=== PATIENT | male | born 1945 | race Caucasian/White ===

== ENCOUNTER → 2017-06-06 | Outpatient (CLI) | payer OTHER ==
[~2017-06-06] MED LIST: ACETAMINOPHEN325 M1 OR; ASPIR 8181 MG PO; ASPIRIN325 OR; ATORVASTATIN CA40 MG PO; BACLOFEN20 MG PO; CALCIUM 500 +1 EAC5 PO; COLACE100 MG PO; COREG OR; COREG6.25 MG PO; COUMADIN 5 MG TA5 M1; CYMBALTA60 MG PO; DIABETA 5MG TABL5 MG PO; DIAZEPAM2.5 MG PO; DULCOLAX STOOL100 MG OR; FLOMAX0.4 MG PO; GLUCOPHAGE1000 MG PO; HUMALOG100 UNIT/1 SUBQ; HYDROCODON-ACE1 EAC7 PO; INSPRA25 MG PO; KEFLEX500 MG PO; LANTUS100 UNIT/M SUBQ; LASIX 40 MG TAB40 M2 PO; LEVEMIR; LISINOPRIL2.5 MG OR; METOLAZONE 2.52.5 M1 PO; MINIPRIN81 MG PO; MIRALAX17 GM PO; MOM OR; MYRBETRIQ25 MG PO; NAPROSYN500 MG PO; NEURONTIN 400400 M1 PO; NIACIN 500 MG500 M1 PO; NORCO 5-325 TA1 EACH PO; OMEGA-31000 MG PO; POTASSIUM20 PO; PRADAXA150 MG PO; PRAMIPEXOLE D0.25 MG PO; SIMVASTATIN80 MG PO; TEGRETOL XR100 MG OR; VENTOLIN HFA 1818 GM INH; VESICARE10 M1 PO; VITAMIN D31000 UNI2 PO; ZANTAC 150MG T150 MG PO; ZINC50 M1 PO
== END ==
LOC: HYPER 05-31 16:13
DX: T81.89XA Other complications of procedures, not elsewhere classified, initial encounter (principal); S81.002A Unspecified open wound, left knee, initial encounter; J44.9 Chronic obstructive pulmonary disease, unspecified; R20.9 Unspecified disturbances of skin sensation; Y99.8 Other external cause status; E11.40 Type 2 diabetes mellitus with diabetic neuropathy, unspecified; M54.16 Radiculopathy, lumbar region; Z86.73 Personal history of transient ischemic attack (TIA), and cerebral infarction without residual deficits; H49.02 Third [oculomotor] nerve palsy, left eye; I70.209 Unspecified atherosclerosis of native arteries of extremities, unspecified extremity; E11.69 Type 2 diabetes mellitus with other specified complication; Z95.810 Presence of automatic (implantable) cardiac defibrillator; L02.91 Cutaneous abscess, unspecified; G47.33 Obstructive sleep apnea (adult) (pediatric); R55 Syncope and collapse; I11.0 Hypertensive heart disease with heart failure; I50.9 Heart failure, unspecified; I48.0 Paroxysmal atrial fibrillation; L05.92 Pilonidal sinus without abscess; F32.9 Major depressive disorder, single episode, unspecified; F41.9 Anxiety disorder, unspecified; Z87.891 Personal history of nicotine dependence; Z72.89 Other problems related to lifestyle; Y92.89 Other specified places as the place of occurrence of the external cause; X58.XXXA Exposure to other specified factors, initial encounter; Y93.89 Activity, other specified; Y83.8 Other surgical procedures as the cause of abnormal reaction of the patient, or of later complication, without mention of misadventure at the time of the procedure

== ENCOUNTER → 2017-06-13 | Outpatient (CLI) | payer OTHER | LOC: HYPER 06:55 | DX: T81.89XD Other complications of procedures, not elsewhere classified, subsequent encounter (principal); S81.002D Unspecified open wound, left knee, subsequent encounter; E11.40 Type 2 diabetes mellitus with diabetic neuropathy, unspecified; J44.9 Chronic obstructive pulmonary disease, unspecified; I11.0 Hypertensive heart disease with heart failure; I50.22 Chronic systolic (congestive) heart failure; G47.33 Obstructive sleep apnea (adult) (pediatric); I48.0 Paroxysmal atrial fibrillation; M19.90 Unspecified osteoarthritis, unspecified site; F32.9 Major depressive disorder, single episode, unspecified; F41.9 Anxiety disorder, unspecified; Z87.891 Personal history of nicotine dependence; Z86.73 Personal history of transient ischemic attack (TIA), and cerebral infarction without residual deficits; Z95.810 Presence of automatic (implantable) cardiac defibrillator; Z72.89 Other problems related to lifestyle; X58.XXXD Exposure to other specified factors, subsequent encounter; Y83.8 Other surgical procedures as the cause of abnormal reaction of the patient, or of later complication, without mention of misadventure at the time of the procedure ==

== ENCOUNTER 2017-07-03 06:26 | Day surgery (SDC) | payer OTHER ==
[~2017-07-03] VITALS: Ht 175.3 cm; Wt 81.6 kg
--- NOTE | ~2017-07-03 | O ---
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 Wright approximately 2 months ago. 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 Wright approximately 2 months ago with large chronic non-healed wound, sinus with exposed sacral bone. PROCEDURE: 1. Examination under anesthesia, excisional debridement of skin and subcutaneous tissue, fascia and bone of chronic nonhealing sacral wound measuring 5 cm in length, 3 cm in width at 2 cm deep. 2. Excisional debridement of skin, subcutaneous tissue, fascia and bone of chronic nonhealing surgical wound of pilonidal area with application of Miroderm fenestrated biologic wound matrix. TYRE RETREADER: Jorge Frost MD ANESTHESIA: IV sedation, local Marcaine 0.25% with epinephrine. INDICATIONS: The patient is a 72-year-old gentleman, chronically debilitated, who underwent excision of a pilonidal cyst and sinus by Dr. Wright approximately 2 months ago. The wound was closed. The wound failed to heal properly. The patient developed a chronic wound sinus, which cannot be healed with standard wound care techniques. Informed consent was obtained for excisional debridement of skin, subcutaneous tissue, fascia and bone to create a larger open wound we could treat with wound VAC therapy. Informed consent was obtained. DESCRIPTION OF PROCEDURE: The patient in left lateral decubitus position with general intravenous sedation. The sacral pilonidal area was prepped with Betadine solution and sterilely draped in usual fashion. Exam under anesthesia showed an open wound at the skin level approximately 1.5 x 1.5 cm with a 4 cm cephalad wound sinus. The area around the wound was locally infiltrated with 0.25% Marcaine and epinephrine. A Dilma clamp was placed in the sinus cavity [address] [address] OPERATIVE REPORT Name: CAT BARAHONA Room #: DEP [facility]..#: [id number] Admission: 07/03/17 Attend Phys: Jorge Frost MD Discharge: 07/03/17 Date of : 49 Report #: [id number] and the skin and subcutaneous tissue overlying the chronic sinus was laid open using a needle tip electrocautery. This exposed a large open subcutaneous wound cavity containing chronic granulation tissue. At the base of this was exposed bone. Using needle tip electrocautery, the entire sinus cavity including chronic granulation tissue and fascia was excised at the base of the wound. The exposed bone was superficially debrided with a rongeur. This left a large open clean wound. Misonix device was used to complete the wound debridement. Hemostasis was complete with electrocautery. Remaining wound was 5 cm long, 3 cm wide, 2 cm deep. A Miroderm fenestrated biological wound matrix was then affixed to the wound bed using interrupted sutures of 2-0 Vicryl. This was then secured with a moist dressing. The patient tolerated the procedure well and was allowed to go home. He will be seen in [facility] for a dressing change tomorrow. Plan will be to obtain wound healing to the point with good granulation bed and then use negative pressure wound therapy with the wound VAC device to attempt to obtain wound closure. The patient was transferred to recovery in stable condition. <ELECTRONICALLY SIGNED> By: Jorge Frost MD 07/06/17 1423 0605 0829 Jorge Frost MD /nt
--- NOTE | ~2017-07-03 | S ---
[facility] [place] [address] SURGICAL PATH RPT PROCEDURE Name: CAT BARAHONA Room #: DEP [facility] M.R.#: [id number] Admission: 07/03/17 Date of : 49 Discharge: 07/03/17 Report #: [id number] Path Case #: [id number] PATHOLOGY REPORT COLLECTION DATE: 07/03/2017 RECEIVED DATE: 07/03/2017 SUBMITTING PHYS: Dr. Jorge Frost OTHER PHYS: Dr. Harpreet Strauss Jr. SPECIMEN(S) RECEIVED: A.Sacral tissue * * * * * * * * * * * * FINAL DIAGNOSIS: "Sacral tissue", debridement: - Fibroadipose connective tissue with acute and chronic inflammation, focal necrosis, granulation tissue and fibrosis. (CLW:cuong; 07/05/2017) PATHOLOGIST: Jamaica Purdy M.D. REPORT ELECTRONICALLY SIGNED BY: Jamaica Purdy M.D. DATE/TIME: 07/05/2017 23:41 * * * * * * * * * * * * GROSS PATHOLOGY: The specimen is received in formalin labeled "Cat Barahona sacral tissue". Received is a segment of riggins-rincon to yellow-rincon soft tissue with attached possible skin measuring 6.1 x 1.4 x 1.2 cm in greatest dimensions. The specimen is submitted representatively in cassette A1, to include sections of possible skin. (CAA; 07/04/2017) CLINICAL HISTORY: Non-healing pilonidal wound INITIAL CPT CODE(S): A; 77158 Professional services performed by [facility] at [facility] [address] [place] [address] Technical services performed by [facility] at [address] [place] [address] [id number] [facility] [address] [place] [address] SURGICAL PATH RPT PROCEDURE Name: CAT BARAHONA Room #: DEP [facility] Valentino#: [id number] Admission: 07/03/17 Date of : 49 Discharge: 07/03/17 Report #: [id number] Path Case #: [id number] [address] PHONE: [phone] DIRECTOR: Nile Miller M.D. * * * END OF REPORT * * *
[~2017-07-03 06:26] MED LIST changes: +DUONEB 2.5-0.5 M3 ML INH
[2017-07-03 09:00] VITALS: BP 104/65
[2017-07-03 09:16] LABS: CREATININE 1.3 mg/dL (0.7-1.3); POTASSIUM 3.6 mmol/L (3.5-5.1)
[2017-07-03 10:01] LABS: PROTIME 10.6 Seconds (9.3-11.4)
== END 2017-07-03 13:00 | disposition home or self-care (01) ==
LOC: OR → TBA 06:26 → OR 06:26 → TBA 06:28 → OR 08:13
PROVIDERS: Specialist
DX: T81.89XA Other complications of procedures, not elsewhere classified, initial encounter (principal); I11.0 Hypertensive heart disease with heart failure; I50.9 Heart failure, unspecified; I25.2 Old myocardial infarction; E11.42 Type 2 diabetes mellitus with diabetic polyneuropathy; I48.91 Unspecified atrial fibrillation; G47.33 Obstructive sleep apnea (adult) (pediatric); K21.9 Gastro-esophageal reflux disease without esophagitis; E78.00 Pure hypercholesterolemia, unspecified; F17.210 Nicotine dependence, cigarettes, uncomplicated; F32.89 Other specified depressive episodes; F41.8 Other specified anxiety disorders; Z98.890 Other specified postprocedural states; Z86.73 Personal history of transient ischemic attack (TIA), and cerebral infarction without residual deficits; Z95.810 Presence of automatic (implantable) cardiac defibrillator; Z79.4 Long term (current) use of insulin; Z79.899 Other long term (current) drug therapy; Z88.6 Allergy status to analgesic agent; Z88.8 Allergy status to other drugs, medicaments and biological substances; Z79.82 Long term (current) use of aspirin; Z91.048 Other nonmedicinal substance allergy status; Y83.8 Other surgical procedures as the cause of abnormal reaction of the patient, or of later complication, without mention of misadventure at the time of the procedure
CPT/HCPCS: 50010; 50101; 50386; 51636; 53353; 53354; 54109; 62110; 62850; 70005

== ENCOUNTER → 2017-07-04 | Outpatient (CLI) | payer OTHER | LOC: HYPER 07:03 | DX: T81.89XD Other complications of procedures, not elsewhere classified, subsequent encounter (principal); E11.40 Type 2 diabetes mellitus with diabetic neuropathy, unspecified; J44.9 Chronic obstructive pulmonary disease, unspecified; I50.22 Chronic systolic (congestive) heart failure; G47.33 Obstructive sleep apnea (adult) (pediatric); I48.0 Paroxysmal atrial fibrillation; I10 Essential (primary) hypertension; L05.92 Pilonidal sinus without abscess; M19.90 Unspecified osteoarthritis, unspecified site; F32.9 Major depressive disorder, single episode, unspecified; F41.9 Anxiety disorder, unspecified; Z87.891 Personal history of nicotine dependence; Z86.73 Personal history of transient ischemic attack (TIA), and cerebral infarction without residual deficits; Z95.810 Presence of automatic (implantable) cardiac defibrillator; Z72.89 Other problems related to lifestyle; Y83.8 Other surgical procedures as the cause of abnormal reaction of the patient, or of later complication, without mention of misadventure at the time of the procedure ==

== ENCOUNTER 2017-07-06 17:14 | Inpatient (IN) | payer OTHER ==
[~2017-07-06] VITALS: Ht 175.3 cm; Wt 81.6 kg
--- NOTE | ~2017-07-06 | D ---
[facility] [place] [address] DISCHARGE SUMMARY Name: CAT BARAHONA Room #: 429-P [facility] IN M.R.#: [id number] Admission: 07/06/17 Attend Phys: Shahnaz Barrios MD Discharge: 07/10/17 Date of : 49 Report #: [id number] THIS REPORT FOR: //name// CC: Shahnaz STEWART DATE OF SERVICE: 07/10/2017 HISTORY OF PRESENT ILLNESS: The patient is a 72-year-old man with multiple medical problems, who came to the hospital with nonhealing coccyx wound, as well as fever and malaise. Please refer to the admission H and P for details. HOSPITALIZATION COURSE: The patient was hospitalized at [facility]. He was started on Zosyn. Infectious Disease and student specialist were involved. The patient had wound vacuum placed on 07/08/2017. His condition improved, and fever resolved. He was also found to have acute kidney injury, that has improved to his baseline, with creatinine of 1.4 from 2.1. The patient currently feels well. He has no new complaints. New wound vacuum was provided to the patient. Before the patient goes home, outpatient antibiotic regimen will be determined by the infectious disease specialist. Currently, the patient's condition is acceptable, as documented in the patient's chart. DISCHARGE DIAGNOSES: 1. Nonhealing surgical wound at the coccyx, status post pilonidal cyst removal few months ago. Wound vacuum was placed. Antibiotic regimen to be determined by Infectious Disease specialist. 2. Acute kidney injury on chronic kidney disease stage 3. Current creatinine is 1.4, from 2.1 on admission. SECONDARY DIAGNOSES: 1. Chronic obstructive pulmonary disease. 2. Hypertension. 3. Dyslipidemia. 4. History of cerebrovascular disease with residual right-sided weakness. 5. Atrial fibrillation, status post automatic implantable cardioverter defibrillator and pacemaker, on Pradaxa for anticoagulation. 6. Congestive heart failure, type is not specified. 7. Tobacco abuse. [facility] [address] [place] [address] DISCHARGE SUMMARY Name: CAT BARAHONA DE LA CRUZ Room #: 429-P [facility].#: [id number] Admission: 07/06/17 Attend Phys: Shahnaz Barrios MD Discharge: 07/10/17 Date of : 49 Report #: [id number] DISCHARGE MEDICATIONS: Please refer to the medication reconciliation list. FOLLOWUP PLAN: 1. Follow up in the Wound Care and Infectious Disease Clinic as advised. 2. Follow up with the primary care physician in 1-2 weeks. DISPOSITION: The patient is discharged home on home health. I spent more than 30 minutes to coordinate the patient's discharge from the hospital. <ELECTRONICALLY SIGNED> By: Dian Suarez MD 07/12/17 1454 1045 1752 Dian Suarez MD /nt
--- NOTE | ~2017-07-06 | HC ---
[facility] [place] [address] CONSULTATION Name: CAT BARAHONA Room #: 429-P ADM IN M.R.#: [id number] Admission: 07/06/17 Attend Phys: Shahnaz Barrios MD Discharge: Date of : 49 Report #: [id number] THIS REPORT FOR: //name// CC: Shahnaz STEWART DATE OF SERVICE: 07/06/2017 DATE OF SERVICE: 07/06/2017 REASON FOR CONSULTATION: Malaise and suspected infection of sacral wound surgery site. HISTORY OF PRESENT ILLNESS: The patient is a wound care patient of mine at [facility]. He a surgical patient of Dr. Strauss who removed a pilonidal cyst on 03/27/2017. The wound never healed properly and ended up with a chronic wound sinus. The patient was seen in Wound Care Center at [facility]. I did take the patient to surgery at [facility] on Saturday07/03/2017 and performed an excisional debridement of the wound, with skin, subcutaneous tissue and some superficial bone and a chronic wound sinus was removed. The patient was sent home with wound packing; however, there was some trouble packing the wound at home and there was considerable drainage. The patient was seen on postoperative day #1 in wound care clinic. The patient's did call me. The patient was having malaise, sleeping a lot and she felt that the wound was red and had a lot of drainage. They presented themselves to the Emergency Room at [facility] and I am consulted for suspicion of possible wound infection. PAST MEDICAL HISTORY: Diabetes mellitus type 2 with diabetic neuropathy, history of cerebrovascular accident with right-sided weakness, history of COPD, history of congestive heart failure, history of atrial fibrillation. PAST SURGICAL HISTORY: On 03/27/2017, pilonidal cyst excision by Dr. Strauss, cervical spine surgery, placement of an implantable defibrillator, two inguinal hernia repairs. REVIEW OF SYSTEMS: The patient has been sleepy with malaise. PHYSICAL EXAMINATION: GENERAL: Shows slightly ill appearing elderly gentleman. VITAL SIGNS: Stable, afebrile. HEENT: Mucous membranes are moist. EXTREMITIES: Right-sided weakness. Examination of the surgical site of the sacral area shows an open wound approximately 4 x 2 x 2.5 cm deep. There is considerable drainage from the wound and a large amount of adherent exudate at the base of the wound. There is some redness of the surrounding skin. Wound [facility] [address] [place] [address] CONSULTATION Name: CAT BARAHONA Room #: 429-P [facility] IN M.R.#: [id number] Admission: 07/06/17 Attend Phys: Shahnaz Barrios MD Discharge: Date of : 49 Report #: [id number] cultures are taken. Wound appears possibly infected. IMPRESSION: Possible postoperative wound infection with systemic effects. PLAN: Wound culture again, IV broad-spectrum antibiotics, Zosyn, and Infectious Disease consultation. We will begin packing the wound with half strength Dakin's packing 2 to 3 times a day and will follow the patient in the hospital with care from the wound care nurse and myself to treat the localized infection of the wound and ready the wound for wound VAC placement. The patient will be admitted to the hospitalist service. <ELECTRONICALLY SIGNED> By: Jorge Frost MD 07/10/17 0712 0755 0824 Jorge Frost MD /nt
--- NOTE | ~2017-07-06 | HC ---
[facility] [place] [address] CONSULTATION Name: CAT BARAHONA Room #: 429-P [facility] IN M.R.#: [id number] Admission: 07/06/17 Attend Phys: Shahnaz Barrios MD Discharge: Date of : 49 Report #: [id number] THIS REPORT FOR: //name// CC: Shahnaz STEWART REASON FOR CONSULTATION: I was asked to evaluate concerning fever and change in mental status following surgical debridement of a coccyx wound. HISTORY OF PRESENT ILLNESS: The patient is a 72-year-old with a nonhealing wound to his coccyx following a pilonidal cyst excision. He was taken to surgery by Dr. Frost on 07/03, for wider excision and debridement. He was discharged home only to return on 07/06, with decreased mental status, temperature 100.2 degrees, anorexia, and increased pain in his buttock. He does have a baclofen, morphine pump for chronic back pain. He has had a previous stroke with right hemiparesis and pain syndrome. REVIEW OF SYSTEMS: Notes no headache, cough, sputum, nausea, vomiting, diarrhea, dysuria, or frequency. ALLERGIES: LISINOPRIL, TAPE, and IBUPROFEN. MEDICATIONS: As noted on his DEC, now on Zosyn. He was on no antibiotics post surgical excision. PAST MEDICAL HISTORY: Lumbar laminectomy and fusion, diabetes, past smoker, hypertension, peripheral neuropathy, CHF, nonischemic cardiomyopathy, frontal sinus tumor removed, left embolic stroke, atrial fibrillation, permanent pacemaker defibrillator, baclofen pump, depression, anxiety, dental extractions, and SC. FAMILY HISTORY: Noncontributory. SOCIAL HISTORY: Smoker of cigarettes, minimal alcohol use. PHYSICAL EXAMINATION: VITAL SIGNS: Afebrile and hemodynamically stable. GENERAL: He was alert, cooperative, had pain in his sacral region. Wound to the coccyx was fairly clean. There was a small eschar over the bone where there was a debridement performed earlier in the week. No purulent drainage. He still had a fair amount of tenderness around the area. CHEST: Clear. HEART: Regular. ABDOMEN: Soft and nontender. Left lower quadrant baclofen pump site unremarkable. He did have some erythema to the lower abdominal region toward the pelvis on the left. Had dry skin there. No definite cellulitis extending to the buttock region. Did not appear to involve the baclofen pump pocket. [address] [address] CONSULTATION Name: CAT BARAHONA Room #: 429-P [facility] IN M.R.#: [id number] Admission: 07/06/17 Attend Phys: Shahnaz Barrios MD Discharge: Date of : 49 Report #: [id number] This will need further observation. EXTERNAL GENITALIA: Unremarkable. EXTREMITIES: Otherwise, unremarkable. LABORATORY STUDIES: Sodium 139, potassium 3, bicarb 33, and creatinine 1.6. Hemoglobin 13.1, white count 7.6, and platelet count 126,000. Blood and wound culture are pending. IMPRESSION: Low grade fever postop, suspect wound as the source. I did talk to Dr. Frost who is concerned about the packing that was in place postoperatively. Acute renal failure, now improved, suspect component of dehydration. RECOMMENDATIONS: We will continue Zosyn, adjust it for his renal failure. Await blood cultures. Check UA and chest x-ray. Continue wound care. <ELECTRONICALLY SIGNED> By: Killian Leggett MD 07/09/17 1710 1339 1419 Killian Leggett MD /nt
[2017-07-06 17:27] VITALS: BP 102/57
[2017-07-06 18:28] LABS: HEMOGLOBIN 13.2 gm/dL (14.0-18.0); MCH 30.7 pg (26.0-34.0); MCHC 34.8 g/dL (28.0-37.0); MCV 88.3 fL (80.0-100.0); PLATELET COUNT 114 thou/uL (150-400); RBC 4.31 mil/uL (4.50-6.00); RDW 13.3 % (10.5-14.5); WBC 9.6 thou/uL (4.0-11.0)
[2017-07-06 18:33] LABS: MANUAL DIFF YES
[2017-07-06 18:38] LABS: CALCIUM 9.3 mg/dL (8.5-10.1); CREATININE 2.1 mg/dL (0.7-1.3); POTASSIUM 3.7 mmol/L (3.5-5.1)
[2017-07-06 18:59] LABS: ABSOLUTE NEUTROPHILS 8.3 thou/uL (1.4-8.2); TOTAL CELL COUNT 100
[2017-07-06 19:30] VITALS: BP 102/57
[2017-07-06 19:32] VITALS: BP 102/57
[2017-07-06 21:46] VITALS: BP 96/51
[2017-07-07 03:15] VITALS: BP 112/54
[2017-07-07 06:23] LABS: HEMATOCRIT 38.6 % (42.0-52.0); HEMOGLOBIN 13.1 gm/dL (14.0-18.0); MCH 30.3 pg (26.0-34.0); MCV 89.2 fL (80.0-100.0); PLATELET COUNT 126 thou/uL (150-400); RBC 4.33 mil/uL (4.50-6.00); RDW 13.3 % (10.5-14.5); WBC 7.6 thou/uL (4.0-11.0)
[2017-07-07 06:27] LABS: MANUAL DIFF YES
[2017-07-07 06:34] LABS: CALCIUM 9.2 mg/dL (8.5-10.1); CREATININE 1.6 mg/dL (0.7-1.3)
[2017-07-07 07:32] LABS: ABSOLUTE NEUTROPHILS 6.7 thou/uL (1.4-8.2); ANISOCYTOSIS 1+; TOTAL CELL COUNT 100
[2017-07-07 10:08] VITALS: BP 105/66
[2017-07-07 16:43] VITALS: BP 109/62
[2017-07-07 20:30] VITALS: BP 125/73
[2017-07-07 21:49] LABS: URINE BILIRUBIN NEGATIVE (Negative); URINE BLOOD 1+ (Negative); URINE COLOR YELLOW; URINE GLUCOSE-RANDOM* NEGATIVE (Negative); URINE KETONES NEGATIVE (Negative); URINE LEUKOCYTES-REFLEX NEGATIVE (Negative); URINE PROTEIN (DIPSTICK) NEGATIVE (Negative); URINE UROBILINOGEN 0.2 E.U./dl (0.2-1.0)
[2017-07-07 22:30] LABS: SQUAMOUS 0-3 Few /LPF (0-3)
[2017-07-07 22:33] LABS: CASTS None Seen /LPF (None Seen); CRYSTALS None Seen /LPF (None Seen); URINE RBC 0-2 Rare /HPF (0-2); URINE WBC-REFLEX 0-5 Rare /HPF (0-5)
[2017-07-08 04:30] VITALS: BP 110/46
[2017-07-08 06:16] LABS: ABSOLUTE NEUTROPHILS 3.8 thou/uL (1.4-8.2); BASOPHILS 0.4 % (0.0-2.0); EOSINOPHILS 5.9 % (0.0-3.0); HEMATOCRIT 37.8 % (42.0-52.0); LYMPHOCYTES 14.7 % (24.0-44.0); MCH 30.4 pg (26.0-34.0); MCHC 34.3 g/dL (28.0-37.0); MCV 88.7 fL (80.0-100.0); MONOCYTES 7.8 % (1.0-8.0); PLATELET COUNT 157 thou/uL (150-400); POLYS 71.2 % (36.0-66.0); RBC 4.26 mil/uL (4.50-6.00); RDW 13.2 % (10.5-14.5); WBC 5.3 thou/uL (4.0-11.0)
[2017-07-08 06:17] LABS: MANUAL DIFF NO
[2017-07-08 06:28] LABS: CALCIUM 9.1 mg/dL (8.5-10.1); CREATININE 1.3 mg/dL (0.7-1.3)
[2017-07-08 07:56] VITALS: BP 101/47
[2017-07-08 15:35] VITALS: BP 97/81
[2017-07-08 19:41] VITALS: BP 116/62
[2017-07-09 04:45] VITALS: BP 110/61
[2017-07-09 07:30] VITALS: BP 119/60
[2017-07-09 15:30] VITALS: BP 106/58
[2017-07-09 20:47] VITALS: BP 113/55
[2017-07-10 04:04] VITALS: BP 127/65
[2017-07-10 05:51] LABS: ABSOLUTE NEUTROPHILS 3.6 thou/uL (1.4-8.2); BASOPHILS 0.8 % (0.0-2.0); EOSINOPHILS 5.2 % (0.0-3.0); HEMATOCRIT 40.4 % (42.0-52.0); HEMOGLOBIN 13.4 gm/dL (14.0-18.0); LYMPHOCYTES 21.9 % (24.0-44.0); MCH 29.8 pg (26.0-34.0); MCHC 33.1 g/dL (28.0-37.0); MCV 89.9 fL (80.0-100.0); PLATELET COUNT 199 thou/uL (150-400); POLYS 62.1 % (36.0-66.0); RBC 4.49 mil/uL (4.50-6.00); RDW 13.2 % (10.5-14.5); WBC 5.8 thou/uL (4.0-11.0)
[2017-07-10 06:04] LABS: CALCIUM 9.4 mg/dL (8.5-10.1); CREATININE 1.2 mg/dL (0.7-1.3); POTASSIUM 4.4 mmol/L (3.5-5.1)
[2017-07-10 06:05] LABS: MANUAL DIFF NO
[2017-07-10 07:35] VITALS: BP 126/68
[2017-07-10 11:46] VITALS: BP 126/68
[2017-07-10] MEDS ORDERED: KEFLEX500 MG PO (17:46)
[2017-07-10 18:05] VITALS: BP 126/68
== END 2017-07-10 18:00 | disposition home health service (06) | DRG 862 ==
LOC: ER 17:14 → EROBS 19:15 → 4E 19:15 → ENTRNSPT 07-10 18:23
PROVIDERS: Emergency Medicine; Internal Medicine Endocrinology, Diabetes & Metabolism; Specialist
DX: T81.4XXA Infection following a procedure, initial encounter (principal); N17.0 Acute kidney failure with tubular necrosis; I13.0 Hypertensive heart and chronic kidney disease with heart failure and stage 1 through stage 4 chronic kidney disease, or unspecified chronic kidney disease; E11.42 Type 2 diabetes mellitus with diabetic polyneuropathy; I50.9 Heart failure, unspecified; E78.5 Hyperlipidemia, unspecified; I48.91 Unspecified atrial fibrillation; K21.9 Gastro-esophageal reflux disease without esophagitis; F32.9 Major depressive disorder, single episode, unspecified; F41.9 Anxiety disorder, unspecified; J44.9 Chronic obstructive pulmonary disease, unspecified; Y83.8 Other surgical procedures as the cause of abnormal reaction of the patient, or of later complication, without mention of misadventure at the time of the procedure; N18.3 Chronic kidney disease, stage 3 (moderate); E87.6 Hypokalemia; G89.29 Other chronic pain; Z79.4 Long term (current) use of insulin; Z79.899 Other long term (current) drug therapy; Y92.89 Other specified places as the place of occurrence of the external cause; Z98.1 Arthrodesis status; Z89.022 Acquired absence of left finger(s); Z86.73 Personal history of transient ischemic attack (TIA), and cerebral infarction without residual deficits; Z95.810 Presence of automatic (implantable) cardiac defibrillator; I25.2 Old myocardial infarction; Z88.8 Allergy status to other drugs, medicaments and biological substances; Z91.048 Other nonmedicinal substance allergy status
CPT/HCPCS: 10183

== ENCOUNTER → 2017-07-18 | Outpatient (CLI) | payer OTHER | LOC: HYPER 07-11 14:12 | DX: T81.89XD Other complications of procedures, not elsewhere classified, subsequent encounter (principal); E11.40 Type 2 diabetes mellitus with diabetic neuropathy, unspecified; J44.9 Chronic obstructive pulmonary disease, unspecified; R20.9 Unspecified disturbances of skin sensation; M54.16 Radiculopathy, lumbar region; Z86.73 Personal history of transient ischemic attack (TIA), and cerebral infarction without residual deficits; R25.2 Cramp and spasm; R22.41 Localized swelling, mass and lump, right lower limb; H49.02 Third [oculomotor] nerve palsy, left eye; I70.209 Unspecified atherosclerosis of native arteries of extremities, unspecified extremity; I11.0 Hypertensive heart disease with heart failure; I50.9 Heart failure, unspecified; G47.33 Obstructive sleep apnea (adult) (pediatric); R55 Syncope and collapse; I48.0 Paroxysmal atrial fibrillation; I69.90 Unspecified sequelae of unspecified cerebrovascular disease; F41.9 Anxiety disorder, unspecified; F32.9 Major depressive disorder, single episode, unspecified; M19.90 Unspecified osteoarthritis, unspecified site; Z87.891 Personal history of nicotine dependence; Z72.89 Other problems related to lifestyle; Y83.8 Other surgical procedures as the cause of abnormal reaction of the patient, or of later complication, without mention of misadventure at the time of the procedure ==

== ENCOUNTER → 2017-07-25 | Outpatient (CLI) | payer OTHER | LOC: HYPER 07:11 | DX: T81.89XD Other complications of procedures, not elsewhere classified, subsequent encounter (principal); E11.40 Type 2 diabetes mellitus with diabetic neuropathy, unspecified; I25.10 Atherosclerotic heart disease of native coronary artery without angina pectoris; J44.9 Chronic obstructive pulmonary disease, unspecified; I11.0 Hypertensive heart disease with heart failure; I50.22 Chronic systolic (congestive) heart failure; L05.91 Pilonidal cyst without abscess; G47.33 Obstructive sleep apnea (adult) (pediatric); I48.0 Paroxysmal atrial fibrillation; M19.90 Unspecified osteoarthritis, unspecified site; F32.9 Major depressive disorder, single episode, unspecified; F41.9 Anxiety disorder, unspecified; Z87.891 Personal history of nicotine dependence; Z72.89 Other problems related to lifestyle; Z95.810 Presence of automatic (implantable) cardiac defibrillator; Z86.73 Personal history of transient ischemic attack (TIA), and cerebral infarction without residual deficits; Y83.8 Other surgical procedures as the cause of abnormal reaction of the patient, or of later complication, without mention of misadventure at the time of the procedure ==

== ENCOUNTER → 2017-08-01 | Outpatient (CLI) | payer OTHER | LOC: HYPER 06:57 | DX: T81.89XD Other complications of procedures, not elsewhere classified, subsequent encounter (principal); L05.92 Pilonidal sinus without abscess; L05.91 Pilonidal cyst without abscess; J44.9 Chronic obstructive pulmonary disease, unspecified; R20.9 Unspecified disturbances of skin sensation; E11.40 Type 2 diabetes mellitus with diabetic neuropathy, unspecified; M54.16 Radiculopathy, lumbar region; R22.41 Localized swelling, mass and lump, right lower limb; H49.02 Third [oculomotor] nerve palsy, left eye; I11.0 Hypertensive heart disease with heart failure; I50.22 Chronic systolic (congestive) heart failure; G47.33 Obstructive sleep apnea (adult) (pediatric); I48.91 Unspecified atrial fibrillation; M19.90 Unspecified osteoarthritis, unspecified site; F41.9 Anxiety disorder, unspecified; F32.9 Major depressive disorder, single episode, unspecified; Z86.73 Personal history of transient ischemic attack (TIA), and cerebral infarction without residual deficits; Z87.891 Personal history of nicotine dependence; Z72.89 Other problems related to lifestyle; Y83.8 Other surgical procedures as the cause of abnormal reaction of the patient, or of later complication, without mention of misadventure at the time of the procedure ==

== ENCOUNTER → 2017-08-13 | Outpatient (CLI) | payer OTHER | LOC: HYPER 07:00 | DX: T81.89XD Other complications of procedures, not elsewhere classified, subsequent encounter (principal); E11.40 Type 2 diabetes mellitus with diabetic neuropathy, unspecified; L05.92 Pilonidal sinus without abscess; L05.91 Pilonidal cyst without abscess; J44.9 Chronic obstructive pulmonary disease, unspecified; I11.0 Hypertensive heart disease with heart failure; I50.22 Chronic systolic (congestive) heart failure; G47.33 Obstructive sleep apnea (adult) (pediatric); I48.0 Paroxysmal atrial fibrillation; M19.90 Unspecified osteoarthritis, unspecified site; F32.9 Major depressive disorder, single episode, unspecified; F41.8 Other specified anxiety disorders; Z87.891 Personal history of nicotine dependence; Z86.73 Personal history of transient ischemic attack (TIA), and cerebral infarction without residual deficits; Z95.810 Presence of automatic (implantable) cardiac defibrillator; Z72.89 Other problems related to lifestyle; Y83.8 Other surgical procedures as the cause of abnormal reaction of the patient, or of later complication, without mention of misadventure at the time of the procedure ==

== ENCOUNTER → 2017-09-10 | Outpatient (CLI) | payer OTHER | LOC: HYPER 09-03 16:22 | DX: T81.89XD Other complications of procedures, not elsewhere classified, subsequent encounter (principal); L05.92 Pilonidal sinus without abscess; L05.91 Pilonidal cyst without abscess; E11.40 Type 2 diabetes mellitus with diabetic neuropathy, unspecified; J44.9 Chronic obstructive pulmonary disease, unspecified; I70.208 Unspecified atherosclerosis of native arteries of extremities, other extremity; I11.0 Hypertensive heart disease with heart failure; I50.22 Chronic systolic (congestive) heart failure; G47.33 Obstructive sleep apnea (adult) (pediatric); I48.0 Paroxysmal atrial fibrillation; M19.90 Unspecified osteoarthritis, unspecified site; F32.9 Major depressive disorder, single episode, unspecified; F41.9 Anxiety disorder, unspecified; Z87.891 Personal history of nicotine dependence; Z72.89 Other problems related to lifestyle; Z86.73 Personal history of transient ischemic attack (TIA), and cerebral infarction without residual deficits; Y83.8 Other surgical procedures as the cause of abnormal reaction of the patient, or of later complication, without mention of misadventure at the time of the procedure ==

== ENCOUNTER → 2017-10-22 | Outpatient (CLI) | payer OTHER ==
[~2017-10-22] MED LIST changes: +ALBUTEROL; +CARVEDILOL3.125 MG; +HUMALOG100 UNIT/1; +IPRATROPIU0.2 MG/1 M; +LANTUS100 UNIT/M; +METOLAZONE 2.52.5 M1; +MIRALAX17 GM; +POTASSIUM20; +ZINC50 M1
== END ==
LOC: HYPER 10-08 06:55
DX: T81.89XD Other complications of procedures, not elsewhere classified, subsequent encounter (principal); E11.40 Type 2 diabetes mellitus with diabetic neuropathy, unspecified; J44.9 Chronic obstructive pulmonary disease, unspecified; I11.0 Hypertensive heart disease with heart failure; I50.9 Heart failure, unspecified; I48.91 Unspecified atrial fibrillation; M19.90 Unspecified osteoarthritis, unspecified site; F32.9 Major depressive disorder, single episode, unspecified; F41.9 Anxiety disorder, unspecified; Z87.891 Personal history of nicotine dependence; Z72.89 Other problems related to lifestyle; Z86.73 Personal history of transient ischemic attack (TIA), and cerebral infarction without residual deficits; Y83.8 Other surgical procedures as the cause of abnormal reaction of the patient, or of later complication, without mention of misadventure at the time of the procedure

== ENCOUNTER → 2017-10-29 | Outpatient (CLI) | payer OTHER | LOC: HYPER 06:50 | DX: T81.89XD Other complications of procedures, not elsewhere classified, subsequent encounter (principal); E11.40 Type 2 diabetes mellitus with diabetic neuropathy, unspecified; I11.0 Hypertensive heart disease with heart failure; I50.22 Chronic systolic (congestive) heart failure; I48.0 Paroxysmal atrial fibrillation; G47.33 Obstructive sleep apnea (adult) (pediatric); J44.9 Chronic obstructive pulmonary disease, unspecified; F32.9 Major depressive disorder, single episode, unspecified; F41.9 Anxiety disorder, unspecified; M19.90 Unspecified osteoarthritis, unspecified site; Z87.891 Personal history of nicotine dependence; Z86.73 Personal history of transient ischemic attack (TIA), and cerebral infarction without residual deficits; Z95.810 Presence of automatic (implantable) cardiac defibrillator; Z72.89 Other problems related to lifestyle; Y83.8 Other surgical procedures as the cause of abnormal reaction of the patient, or of later complication, without mention of misadventure at the time of the procedure ==

== ENCOUNTER → 2017-11-05 | Outpatient (CLI) | payer OTHER | LOC: HYPER 06:43 | DX: T81.89XD Other complications of procedures, not elsewhere classified, subsequent encounter (principal); E11.40 Type 2 diabetes mellitus with diabetic neuropathy, unspecified; L05.92 Pilonidal sinus without abscess; L05.91 Pilonidal cyst without abscess; R25.2 Cramp and spasm; J44.9 Chronic obstructive pulmonary disease, unspecified; I11.0 Hypertensive heart disease with heart failure; I50.9 Heart failure, unspecified; I48.91 Unspecified atrial fibrillation; M19.90 Unspecified osteoarthritis, unspecified site; F41.9 Anxiety disorder, unspecified; F32.9 Major depressive disorder, single episode, unspecified; Z86.73 Personal history of transient ischemic attack (TIA), and cerebral infarction without residual deficits; Z87.891 Personal history of nicotine dependence; Z72.89 Other problems related to lifestyle; Y83.8 Other surgical procedures as the cause of abnormal reaction of the patient, or of later complication, without mention of misadventure at the time of the procedure ==

== ENCOUNTER → 2017-11-19 | Outpatient (CLI) | payer OTHER | LOC: HYPER 06:52 | DX: T81.89XD Other complications of procedures, not elsewhere classified, subsequent encounter (principal); E11.40 Type 2 diabetes mellitus with diabetic neuropathy, unspecified; J44.9 Chronic obstructive pulmonary disease, unspecified; I11.0 Hypertensive heart disease with heart failure; I50.22 Chronic systolic (congestive) heart failure; G47.33 Obstructive sleep apnea (adult) (pediatric); I48.0 Paroxysmal atrial fibrillation; M19.90 Unspecified osteoarthritis, unspecified site; F32.9 Major depressive disorder, single episode, unspecified; F41.9 Anxiety disorder, unspecified; Z87.891 Personal history of nicotine dependence; Z86.73 Personal history of transient ischemic attack (TIA), and cerebral infarction without residual deficits; Z95.810 Presence of automatic (implantable) cardiac defibrillator; Z72.89 Other problems related to lifestyle; Y83.8 Other surgical procedures as the cause of abnormal reaction of the patient, or of later complication, without mention of misadventure at the time of the procedure ==

== ENCOUNTER → 2017-11-26 | Outpatient (CLI) | payer OTHER | LOC: HYPER 06:51 | DX: T81.89XD Other complications of procedures, not elsewhere classified, subsequent encounter (principal); E11.40 Type 2 diabetes mellitus with diabetic neuropathy, unspecified; J44.9 Chronic obstructive pulmonary disease, unspecified; I25.10 Atherosclerotic heart disease of native coronary artery without angina pectoris; I11.0 Hypertensive heart disease with heart failure; I50.22 Chronic systolic (congestive) heart failure; G47.33 Obstructive sleep apnea (adult) (pediatric); I48.0 Paroxysmal atrial fibrillation; M19.90 Unspecified osteoarthritis, unspecified site; F32.9 Major depressive disorder, single episode, unspecified; F41.9 Anxiety disorder, unspecified; Z87.891 Personal history of nicotine dependence; Z86.73 Personal history of transient ischemic attack (TIA), and cerebral infarction without residual deficits; Z95.810 Presence of automatic (implantable) cardiac defibrillator; Z72.89 Other problems related to lifestyle; Y83.8 Other surgical procedures as the cause of abnormal reaction of the patient, or of later complication, without mention of misadventure at the time of the procedure ==

== ENCOUNTER → 2017-12-10 | Outpatient (CLI) | payer OTHER | LOC: HYPER 12-03 06:50 | DX: T81.89XD Other complications of procedures, not elsewhere classified, subsequent encounter (principal); E11.40 Type 2 diabetes mellitus with diabetic neuropathy, unspecified; I11.0 Hypertensive heart disease with heart failure; I50.9 Heart failure, unspecified; I48.0 Paroxysmal atrial fibrillation; M54.16 Radiculopathy, lumbar region; M19.90 Unspecified osteoarthritis, unspecified site; H49.02 Third [oculomotor] nerve palsy, left eye; J44.9 Chronic obstructive pulmonary disease, unspecified; F32.9 Major depressive disorder, single episode, unspecified; G47.33 Obstructive sleep apnea (adult) (pediatric); F41.9 Anxiety disorder, unspecified; Z87.891 Personal history of nicotine dependence; Z72.89 Other problems related to lifestyle; Z86.73 Personal history of transient ischemic attack (TIA), and cerebral infarction without residual deficits; Y83.8 Other surgical procedures as the cause of abnormal reaction of the patient, or of later complication, without mention of misadventure at the time of the procedure ==